=== PATIENT | female | born 1985 | race Caucasian/White ===

== ENCOUNTER 2024-05-12 10:49 | Emergency (ER) | payer OTHER, SELFPAY ==
[2024-05-12] VITALS (11 sets, daily range): BP systolic 94–114; BP diastolic 60–75; PULSE 89–103; RESP 20; TEMP 36.7–37; O2SAT 98–100; BMI 25.8
[2024-05-12 11:20] LABS: Add Manual Diff / Slide Review NO; Basophils Absolute Auto 100 /uL (0-100); Basophils Percent Auto 0.5 % (0-2); Eosinophils Absolute Auto 100 /uL (0-450); Eosinophils Percent Auto 0.7 % (2-4); Hematocrit 39.5 % (36-46); Hemoglobin 13.5 g/dL (12.0-16.0); Lymphocytes Absolute Auto 1500 /uL (1100-4500); Lymphocytes Percent Auto 8.8 % (25-40); Mean Corpuscular HGB Conc 34.1 % (30-36); Mean Corpuscular Volume 85.1 fL (80-100); Monocytes Absolute Auto 1200 /uL (0-900); Monocytes Percent Auto 7.2 % (3-14); Neutrophils Absolute Auto 14200 /uL (1500-7000); Neutrophils Percent Auto 82.8 % (50-75); Platelet Count 492 X10^3/uL (150-400); Red Blood Cell Count 4.65 X10^6/uL (4.0-5.2); Red Cell Distribution Width 12.2 % (11.6-14.8); White Blood Cell Count 17.1 X10^3/uL (4.5-11.0)
[2024-05-12 11:35] LABS: Alanine Aminotransferase 109 IU/L (<35); Albumin 4.1 g/dL (3.5-5.0); Albumin Globulin Ratio 1.2 (1.0-2.8); Alkaline Phosphatase 164 U/L (38-126); Aspartate Aminotransferase 80 IU/L (14-36); BUN Creatinine Ratio 13.5 (6-22); Bilirubin Total 0.7 mg/dL (0.2-1.3); Blood Urea Nitrogen 12 mg/dL (7-17); Calcium 9.4 mg/dL (8.4-10.2); Carbon Dioxide 25 mmol/L (22-32); Chloride 101 mmol/L (98-107); Estimated Glomerular Filt Rate > 60 mL/min (>60); Globulin 3.5 g/dL (1.7-4.1); Glucose 115 mg/dL (70-100); HEMOLYSIS < 15 (0-50); Lipase 68 U/L (23-300); Potassium 3.7 mmol/L (3.4-5.1); Sodium 136 mmol/L (137-145); Total Protein 7.6 g/dL (6.3-8.2)
--- NOTE | 2024-05-12 11:55 | ED_ITS ---
HPI - Abdominal Pain General Chief Complaint: Abdominal Pain Stated Complaint: abd pain, fever, diarrhea Time Seen by Provider: 05/12/24 11:11 Source: patient Mode of arrival: Ambulatory History of Present Illness HPI narrative: Patient here with . Complains of generalized abdominal pain does not radiate for the past 10-12 days. Had fever this past Saturday. Seen by primary care and prescribed Augmentin this week. Was scheduled for outpatient CT scan next week. No urinary complaints. No nausea or vomiting. Diarrhea has been nonbloody. Worse with eating. Denies any abdominal surgical history. Patient in no distress. No known sick contacts. No recent foreign travel. No known contaminated foods. Related Data Allergies Allergy/AdvReac Type Severity Reaction Status Date / Time No Known Drug Allergies Allergy Verified 05/12/24 11:15 Review of Systems Review of Systems Narrative: GENERAL: Negative chills, fatigue, malaise, positive fever, negative sweats. HEENT: Negative sinus pain, ear pain, sore throat RESPIRATORY: Negative dyspnea, cough CARDIOVASCULAR: Negative chest pain, palpitations GASTROINTESTINAL: Negative nausea, vomiting, positive diarrhea and abdominal pain : Negative dysuria, frequency, hematuria MUSCULOSKELETAL: Negative muscle or bony pain SKIN: Negative rash, skin lesions NEUROLOGIC: Negative weakness, numbness ROS Unobtainable: All systems reviewed & are unremarkable except as noted in HPI and below Patient History Social History Smoking Status: Never smoker Smoking Status: Never smoker Exam Narrative Exam Narrative: GENERAL: in no distress, not toxic not dyspneic HEAD: Normocephalic. EYES: Pupils equal round ENT: Mucous membranes moist. NECK: Trachea midline. CARDIOVASCULAR: Regular rate and rhythm RESPIRATORY: Clear to auscultation. Breath sounds equal bilaterally. No wheezes, rales, or rhonchi. GASTROINTESTINAL: Abdomen soft, non-tender abdomen is soft flat nontender no peritoneal signs bowel sounds are present no guarding or rebound. No CVA tenderness EXTREMITIES: No gross deformities. BACK: No flank tenderness. NEURO: AOx4. SKIN: Warm and dry PSYCH: Not anxious, is cooperative Initial Vital Signs Initial Vital Signs: Vital Signs Pulse Rate 99 H 05/12/24 11:01 Blood Pressure 114/69 05/12/24 11:01 Pulse Oximetry 99 05/12/24 11:01 Course Orders Ordered: Discontinued Medications Sodium Chloride (Normal Saline 0.9%) 1,000 mls @ 1,000 mls/hr IV BOLUS ONE Stop: 05/12/24 12:53 Last Infusion: 05/12/24 14:31 Dose: Infused Documented By: Admin: 05/12/24 13:06 Dose: 1,000 mls/hr Documented By: ROBBIN Ondansetron HCl (Ondansetron 4 Mg/2 Ml Inj) 4 mg IV NOW PRN PRN Reason: Nausea And Vomiting Ondansetron HCl (Ondansetron 4 Mg Odt) 4 mg PO NOW PRN PRN Reason: Nausea And Vomiting Vital Signs Vital signs: Vital Signs - 8 hr 05/12/24 11:01 05/12/24 11:01 05/12/24 11:07 Temperature 98.1 F Pulse Rate 99 H 103 H Respiratory Rate 20 Blood Pressure 114/69 114/69 Pulse Oximetry 99 100 Oxygen Delivery Method Room Air 05/12/24 11:30 05/12/24 12:10 05/12/24 12:11 Temperature Pulse Rate 92 H Respiratory Rate Blood Pressure 114/69 Pulse Oximetry 98 98 Oxygen Delivery Method 05/12/24 12:11 05/12/24 12:30 05/12/24 12:30 Temperature Pulse Rate 94 H 92 H Respiratory Rate Blood Pressure 109/65 Pulse Oximetry 99 100 Oxygen Delivery Method 05/12/24 12:59 05/12/24 12:59 05/12/24 13:00 Temperature Pulse Rate 97 H Respiratory Rate Blood Pressure 94/75 107/65 Pulse Oximetry 100 Oxygen Delivery Method 05/12/24 13:00 05/12/24 13:30 05/12/24 13:30 Temperature Pulse Rate 92 H 90 Respiratory Rate Blood Pressure 102/60 Pulse Oximetry 100 100 Oxygen Delivery Method 05/12/24 14:00 05/12/24 14:00 Temperature Pulse Rate 90 Respiratory Rate Blood Pressure 102/65 Pulse Oximetry 100 Oxygen Delivery Method MDM - Abdominal Pain Lab Data 05/12/24 11:12 05/12/24 11:12 Labs: Lab Results 05/12/24 05/12/24 05/12/24 Range/Units 11:12 12:02 12:50 WBC 17.1 H (4.5-11.0) X10^3/uL RBC 4.65 (4.0-5.2) X10^6/uL Hgb 13.5 (12.0-16.0) g/dL Hct 39.5 (36-46) % MCV 85.1 (80-100) fL MCH 29.0 (26-34) PG MCHC 34.1 (30-36) % RDW 12.2 (11.6-14.8) % Plt Count 492 H (150-400) X10^3/uL Neut % (Auto) 82.8 H (50-75) % Lymph % (Auto) 8.8 L (25-40) % [place] % (Auto) 7.2 (3-14) % Eos % (Auto) 0.7 L (2-4) % Baso % (Auto) 0.5 (0-2) % Neut # (Auto) 34303 H (3851-0974) /uL Lymph # (Auto) 1500 (9017-0410) /uL [place] # (Auto) 1200 H (0-900) /uL Eos # (Auto) 100 (0-450) /uL Baso # (Auto) 100 (0-100) /uL Sodium 136 L (137-145) mmol/L Potassium 3.7 (3.4-5.1) mmol/L Chloride 101 (98-107) mmol/L Carbon Dioxide 25 (22-32) mmol/L BUN 12 (7-17) mg/dL Creatinine 0.89 (0.52-1.04) mg/dL Estimated GFR > 60 (>60) mL/min BUN/Creatinine Ratio 13.5 (6-22) Glucose 115 H (70-100) mg/dL Calcium 9.4 (8.4-10.2) mg/dL Total Bilirubin 0.7 (0.2-1.3) mg/dL AST 80 H (14-36) IU/L ALT 109 H (<35) IU/L Alkaline Phosphatase 164 H (38-126) U/L Total Protein 7.6 (6.3-8.2) g/dL Albumin 4.1 (3.5-5.0) g/dL Globulin 3.5 (1.7-4.1) g/dL Albumin/Globulin Ratio 1.2 (1.0-2.8) Lipase 68 (23-300) U/L Serum , Qual Negative (Negative) Urine RBC (0-5/HPF) Urine WBC (0-5/HPF) Ur Squamous Epith Cells (0-5/HPF) Urine Bacteria (None) Ur Culture Indicated? Vol Urine Centrifuged Stl C. cayetanensis PCR Not detected (Not Detect) Stool Rotavirus (PCR) Not detected (Not Detect) Stool Adenovirus (PCR) Not detected (Not Detect) Stool Astrovirus (PCR) Not detected (Not Detect) Stool Cryptosporidium PCR Not detected (Not Detect) Stl E.coli Shiga Tox PCR Not detected (Not Detect) St Sh/Enteroin Ecoli PCR Not detected (Not Detect) Stl Enterotoxigenic E PCR Detected (Not Detect) Stool EPEC (PCR) Not detected (Not Detect) Stl E. histolytica PCR Not detected (Not Detect) Stool Giardia Lamblia PCR Not detected (Not Detect) Stool Sapovirus (PCR) Not detected (Not Detect) Stl P. shigelloides PCR Not detected (Not Detect) St Y.enterocolitica PCR Not detected (Not Detect) Stool Vibrio (PCR) Not detected (Not Detect) Stl Vibrio cholerae PCR Not detected (Not Detect) Stl Enteroaggr Ecoli PCR Not detected (Not Detect) Stl Norovirus GI/GII PCR Not detected (Not Detect) Campylobacter (PCR) Not detected (Not Detect) C. difficile Tox (PCR) Not detected (Not Detect) SARS-CoV-2 (PCR) Negative (Negative) Influenza A (RT-PCR) Flu a negative (NEGATIVE) Influenza B (RT-PCR) Flu b negative (NEGATIVE) RSV (PCR) Negative (Negative) Salmonella (PCR) Not detected (Not Detect) 05/12/24 Range/Units 12:55 WBC (4.5-11.0) X10^3/uL RBC (4.0-5.2) X10^6/uL Hgb (12.0-16.0) g/dL Hct (36-46) % MCV (80-100) fL MCH (26-34) PG MCHC (30-36) % RDW (11.6-14.8) % Plt Count (150-400) X10^3/uL Neut % (Auto) (50-75) % Lymph % (Auto) (25-40) % [place] % (Auto) (3-14) % Eos % (Auto) (2-4) % Baso % (Auto) (0-2) % Neut # (Auto) (5688-7267) /uL Lymph # (Auto) (9094-0550) /uL [place] # (Auto) (0-900) /uL Eos # (Auto) (0-450) /uL Baso # (Auto) (0-100) /uL Sodium (137-145) mmol/L Potassium (3.4-5.1) mmol/L Chloride (98-107) mmol/L Carbon Dioxide (22-32) mmol/L BUN (7-17) mg/dL Creatinine (0.52-1.04) mg/dL Estimated GFR (>60) mL/min BUN/Creatinine Ratio (6-22) Glucose (70-100) mg/dL Calcium (8.4-10.2) mg/dL Total Bilirubin (0.2-1.3) mg/dL AST (14-36) IU/L ALT (<35) IU/L Alkaline Phosphatase (38-126) U/L Total Protein (6.3-8.2) g/dL Albumin (3.5-5.0) g/dL Globulin (1.7-4.1) g/dL Albumin/Globulin Ratio (1.0-2.8) Lipase (23-300) U/L Serum , Qual (Negative) Urine RBC None seen (0-5/HPF) Urine WBC 1-5/hpf (0-5/HPF) Ur Squamous Epith Cells 1-5 /hpf (0-5/HPF) Urine Bacteria Few (2-10) H (None) Ur Culture Indicated? Cult not indicated Vol Urine Centrifuged 10ml (spun) Stl C. cayetanensis PCR (Not Detect) Stool Rotavirus (PCR) (Not Detect) Stool Adenovirus (PCR) (Not Detect) Stool Astrovirus (PCR) (Not Detect) Stool Cryptosporidium PCR (Not Detect) Stl E.coli Shiga Tox PCR (Not Detect) St Sh/Enteroin Ecoli PCR (Not Detect) Stl Enterotoxigenic E PCR (Not Detect) Stool EPEC (PCR) (Not Detect) Stl E. histolytica PCR (Not Detect) Stool Giardia Lamblia PCR (Not Detect) Stool Sapovirus (PCR) (Not Detect) Stl P. shigelloides PCR (Not Detect) St Y.enterocolitica PCR (Not Detect) Stool Vibrio (PCR) (Not Detect) Stl Vibrio cholerae PCR (Not Detect) Stl Enteroaggr Ecoli PCR (Not Detect) Stl Norovirus GI/GII PCR (Not Detect) Campylobacter (PCR) (Not Detect) C. difficile Tox (PCR) (Not Detect) SARS-CoV-2 (PCR) (Negative) Influenza A (RT-PCR) (NEGATIVE) Influenza B (RT-PCR) (NEGATIVE) RSV (PCR) (Negative) Salmonella (PCR) (Not Detect) Point of care testing: Point of Care Testing Test Results Negative Urine Dip Bedside Urine Glucose Negative Bedside Urine Bilirubin - Negative Bedside Urine Ketone - Negative Urine Specific [place] 1.005 Bedside Urine Occult Blood +/- Bedside Urine pH 5.5 Bedside Urine Protein - Negative Bedside Urine Urobilinogen - Negative Bedside Urine Nitrite - Negative Bedside Urine Leukocytes +/- [address] scan - abdomen/pelvis: Radiologist's Impression: [address] [address] [address] Scan Report Signed Patient: Mary Najera MR#: [id number] : 1985 Acct:[id number] Age/Sex: 39 / F Date of Service: 05/12/24 Loc: ED Accession Number: [id number] Procedure: CT abdomen pelvis w con Ordering Provider: Jonathon Servin MD PROCEDURE: CT ABDOMEN PELVIS W CON INDICATIONS: IV contrast only/Fever/abdominal pain/diarrhea TECHNIQUE: After the administration of intravenous contrast, axial sections acquired from the lung bases to the pubic symphysis. Coronal and sagittal reformats were performed. For radiation dose reduction, the following was used: automated exposure control, adjustment of mA and/or kV according to patient size. COMPARISON: None. FINDINGS: Image quality: Diagnostic. Lower Chest: Lung bases are clear. Right breast implant noted. Right upper lobe pleural thickening/scarring likely related to prior radiation therapy. Heart size is normal. ABDOMEN: Liver: No solid mass. Gallbladder: Gallbladder is unremarkable without CT evidence for acute inflammation. Biliary ducts: No biliary dilation. Pancreas: Homogeneous enhancement without focal lesions or pancreatic ductal dilatation. No peripancreatic inflammation or organized fluid collections. Spleen: Size is within normal limits. Adrenal Glands: No adrenal nodules. Kidneys and Ureters: No hydronephrosis. No solid mass. No complex renal cystic lesion which requires follow up. Stomach and Bowel: There is moderate circumferential wall thickening and associated inflammatory stranding involving the colon extending from the mid transverse colon through the rectum. There also extensive fluid-filled loops of nondilated small bowel without significant wall thickening. No evidence for bowel obstruction. Peritoneum: No abnormal intraperitoneal fluid. No free air. Ventral Wall: No significant ventral hernia. Abdominal Nodes: No retroperitoneal or mesenteric adenopathy by size criteria. Vessels: Aorta and inferior vena cava are normal in size. PELVIS: Pelvic Organs: Unremarkable. Bladder: No bladder wall thickening, accounting for underdistention. Pelvic Nodes: No enlarged lymph nodes. Miscellaneous: No inguinal hernias are seen. Bones: No aggressive osseous abnormality. Visualized osseous structures appear intact without acute fracture or focal destructive lesion. No acute compression fractures of the imaged spine. IMPRESSION: Findings consistent with enterocolitis either infectious or inflammatory in etiology. No evidence for bowel obstruction. Other chronic findings as above. Dictated by: Gómez Rinaldi M.D. on 05/12/2024 at 13:45 Approved by: Gómez Rinaldi M.D. on 05/12/2024 at 13:51 [facility] Narrative Medical decision making narrative: Patient here with . Complains of generalized abdominal pain does not radiate for the past 10-12 days. Had fever this past Saturday. Seen by primary care and prescribed Augmentin this week. Was scheduled for outpatient CT scan next week. No urinary complaints. No nausea or vomiting. Diarrhea has been nonbloody. Worse with eating. Denies any abdominal surgical history. Patient in no distress. No known sick contacts. No recent foreign travel. No known contaminated foods. After history and exam CBC CMP CT abdomen pelvis normal saline GI panel respiratory panel lipase [facility] Medical records reviewed: No recent visit for this complaint Differential considered: Includes but not limited to noro virus viral gastroenteritis colitis UTI appendicitis cholecystitis pancreatitis Lab Test results independently reviewed as above. Pertinent findings: WBC 17.1 sodium 136 AST 80 ALT 109 lipase 68, GI panel positive entire toxigenic E coli Imaging studies independently reviewed: CT abdomen pelvis consistent with enterocolitis Consultations: 2:45 p.m.. Spoke with Infectious Disease, Dr. Mcfadden, with [facility], reviewed results with him. No antibiotics at this time. No admission indicated. Is supportive care. Treatments: IV fluids Re-evaluations: 2:55 p.m.. Updated patient and results. Reviewed with him my discussion with infectious disease. They do understand do not take the Augmentin. That was prescribed yesterday by primary care. Supportive care is the management. Hydration instructions provided. They desire discharge home. Discussion: Appropriate for discharge home exam is reassuring. Return precautions reviewed with patient. Infectious Disease was consulted. Patient desires discharge home. Diagnosis: Infectious diarrhea Discharge Plan Departure Patient Disposition: Home Clinical Impression: Acute infectious diarrhea Instructions: DI for Bacterial Gastroenteritis -- Adult Activity Restrictions/Additional Instructions: Your laboratory studies did show positive infection with E coli. Infectious Disease was consulted and no antibiotics are indicated at this time. Keep herself well hydrated. No prescriptions are indicated this time. See family doctor within a week for re-evaluation. Return if worse if any questions or concerns. Work note has been provided for you. Stand Alone Forms: Patient Portal/API/Survey, Work Release Note
[2024-05-12 12:03] LABS: Pregnancy Test Serum,Qual Negative (Negative)
[2024-05-12] MEDS: SODIUM CHLORIDE 0.9% 1,000 ML 1000 ML IV (13:06)
[2024-05-12 13:16] LABS: Urine Volume 10mL (spun)
[2024-05-12 14:01] LABS: Bacteria Urine Few (2-10); Culture Indicated Urine Cult Not Indicated; RBC Urine None Seen (0-5/HPF); Squamous Epithelial Cell Urine 1-5 /HPF (0-5/HPF); WBC Urine 1-5/HPF (0-5/HPF)
[2024-05-12 14:17] LABS: Adenovirus F 40/41 Not Detected (Not Detect); Astrovirus Not Detected (Not Detect); Campylobacter Not Detected (Not Detect); Clostridium difficile toxin AB Not Detected (Not Detect); Cryptosporidium Not Detected (Not Detect); Cyclospora cayetanensis Not Detected (Not Detect); Entamoeba histolytica Not Detected (Not Detect); Enteroaggregative E.coli Not Detected (Not Detect); Enteropathogenic E.coli Not Detected (Not Detect); Enterotoxigenic E.coli It/st Detected (Not Detect); Giardia lamblia Not Detected (Not Detect); Norovirus GI/GII Not Detected (Not Detect); Plesiomonsa shigelloides Not Detected (Not Detect); Rotavirus A Not Detected (Not Detect); Salmonella Not Detected (Not Detect); Sapovirus Not Detected (Not Detect); Shiga-like toxin-prod E.coli Not Detected (Not Detect); Shigella/Enteroinvasive E.coli Not Detected (Not Detect); Vibrio Not Detected (Not Detect); Vibrio cholerae Not Detected (Not Detect); Yersinia enterocolitica Not Detected (Not Detect)
[2024-05-12 14:57] LABS: Influenza A - CEPHEID Flu A NEGATIVE (NEGATIVE); Influenza B - CEPHEID Flu B NEGATIVE (NEGATIVE); Respiratory Syncytial Virus Negative (Negative)
[2024-05-12 15:05] LABS: COVID-19 CEPHEID 4-PLEX PCR Negative (Negative)
== END 2024-05-12 15:09 | disposition home or self-care (01) ==
PROVIDERS: Emergency Provider Emergency Medicine
DX: A09 Infectious gastroenteritis and colitis, unspecified (principal); B96.20 Unspecified Escherichia coli [E. coli] as the cause of diseases classified elsewhere
CPT/HCPCS: 0241U; 36415; 74177; 80053; 81003; 81015; 81025; 83690; 84703; 85025; 87507; 96360; 99284; Q9967

== ENCOUNTER 2024-05-18 10:57 | Emergency (ER) | payer OTHER, SELFPAY ==
[2024-05-18] VITALS (12 sets, daily range): BP systolic 100–109; BP diastolic 67–74; PULSE 90–119; RESP 15–18; TEMP 37.1; O2SAT 96–100; BMI 26.5
[2024-05-18 12:02] LABS: Add Manual Diff / Slide Review NO; Basophils Absolute Auto 100 /uL (0-100); Basophils Percent Auto 0.6 % (0-2); Eosinophils Absolute Auto 200 /uL (0-450); Eosinophils Percent Auto 1.2 % (2-4); Hematocrit 37.6 % (36-46); Hemoglobin 12.6 g/dL (12.0-16.0); Lymphocytes Absolute Auto 1100 /uL (1100-4500); Lymphocytes Percent Auto 8.4 % (25-40); Mean Corpuscular HGB Conc 33.5 % (30-36); Mean Corpuscular Hemoglobin 28.3 PG (26-34); Mean Corpuscular Volume 84.6 fL (80-100); Monocytes Absolute Auto 1700 /uL (0-900); Monocytes Percent Auto 12.8 % (3-14); Neutrophils Absolute Auto 10500 /uL (1500-7000); Platelet Count 501 X10^3/uL (150-400); Red Blood Cell Count 4.44 X10^6/uL (4.0-5.2); Red Cell Distribution Width 12.3 % (11.6-14.8); White Blood Cell Count 13.6 X10^3/uL (4.5-11.0)
[2024-05-18] MEDS: SODIUM CHLORIDE 0.9% 1,000 ML 1000 ML IV ×2 (12:04→13:43)
[2024-05-18 12:11] LABS: Alanine Aminotransferase 70 IU/L (<35); Albumin 3.5 g/dL (3.5-5.0); Alkaline Phosphatase 151 U/L (38-126); Aspartate Aminotransferase 34 IU/L (14-36); BUN Creatinine Ratio 11.7 (6-22); Bilirubin Total 0.6 mg/dL (0.2-1.3); Blood Urea Nitrogen 9 mg/dL (7-17); Calcium 8.6 mg/dL (8.4-10.2); Carbon Dioxide 24 mmol/L (22-32); Chloride 102 mmol/L (98-107); Estimated Glomerular Filt Rate > 60 mL/min (>60); Globulin 3.4 g/dL (1.7-4.1); Glucose 117 mg/dL (70-100); HEMOLYSIS < 15 (0-50); Lactate (Lactic Acid) 1.1 mmol/L (0.7-2.1); Potassium 3.5 mmol/L (3.4-5.1); Sodium 135 mmol/L (137-145); Total Protein 6.9 g/dL (6.3-8.2)
--- NOTE | 2024-05-18 12:25 | ED.NAVMDI ---
HPI - Nausea/Vomiting/Diarrhea General Chief complaint: Nausea/Vomiting/Diarrhea Stated complaint: Not getting better from last ER visit Time Seen by Provider: 05/18/24 11:55 Source: patient Mode of arrival: Ambulatory History of Present Illness HPI Narrative: Patient is a 39-year-old female recently diagnosed with E coli entero toxigenic diarrhea, on 05/12/2024. She reports she would has multiple episodes of loose stool 10-12 daily, more so when she eats. She started having fevers 102-103, 4 nights ago. She says she gets some during the day but more at night. She was able to pee urinate today she was very dizzy lightheaded in the shower but she did not out. She has minimal cramping no real nausea she took 3 days of azithromycin fevers continue along with a stool. She reports that she has had diarrhea ongoing since May 04 does not seem to be getting any better. She had a CT May 12 which did show entero colitis. Related Data Allergies Allergy/AdvReac Type Severity Reaction Status Date / Time No Known Drug Allergies Allergy Verified 05/12/24 11:15 Patient History Social History Smoking Status: Never smoker Smoking Status: Never smoker Exam Initial Vital Signs Initial Vital Signs: Vital Signs Temperature 98.7 F 05/18/24 11:16 Pulse Rate 119 H 05/18/24 11:16 Respiratory Rate 18 05/18/24 11:16 Blood Pressure 109/74 05/18/24 11:16 Pulse Oximetry 96 05/18/24 11:16 Oxygen Delivery Method Room Air 05/18/24 11:16 GENERAL: Slightly pale 39-year-old female HEENT: Head atraumatic,EOMI, pupils reactive, face symmetric, moist mucous membranes CARDIOVASCULAR: Regular rate and rhythm without murmurs, rubs or gallops. RESPIRATORY: Breath sounds equal bilaterally, no wheezes rales or rhonchi. ABDOMEN: Soft, nontender. Normoactive bowel sounds all 4 quadrants. No guarding or rebound. EXTREMITIES: Normal range of motion, no clubbing or edema. Neurovascularly intact NEUROLOGICAL: Alert and oriented x4.Normal gait and speech. Cranial nerves II through XII grossly intact. SKIN: Warm, dry, no laceration, no petechiae, no rashes or lesions. Course Orders Ordered: ED Orders 05/18/24 11:55 CBC Auto Diff [Complete Blood Count AUTO DIFF] Stat CMP [Comprehensive Metabolic Panel] Stat Lactate (Lactic Acid) Stat 05/18/24 12:30 GI Panel (Film Array) Stat 05/18/24 14:30 Blood Culture Stat Discontinued Medications Sodium Chloride (Normal Saline 0.9%) 1,000 mls @ 1,000 mls/hr IV BOLUS ONE Stop: 05/18/24 12:55 Last Infusion: 05/18/24 13:42 Dose: Infused Documented By: Admin: 05/18/24 12:04 Dose: 1,000 mls/hr Documented By: Sodium Chloride (Normal Saline 0.9%) 1,000 mls @ 1,000 mls/hr IV BOLUS ONE Stop: 05/18/24 14:41 Last Infusion: 05/18/24 15:09 Dose: Infused Documented By: Admin: 05/18/24 13:43 Dose: 1,000 mls/hr Documented By: Vital Signs Vital signs: Vital Signs - 8 hr 05/18/24 11:16 05/18/24 11:31 05/18/24 11:31 Temperature 98.7 F Pulse Rate 119 H 107 H Respiratory Rate 18 Blood Pressure 109/74 103/68 Pulse Oximetry 96 98 Oxygen Delivery Method Room Air 05/18/24 12:00 05/18/24 12:00 05/18/24 12:30 Temperature Pulse Rate 97 H 90 Respiratory Rate Blood Pressure 100/68 Pulse Oximetry 97 Oxygen Delivery Method 05/18/24 13:00 05/18/24 13:30 05/18/24 13:40 Temperature Pulse Rate 96 H 99 H 99 H Respiratory Rate Blood Pressure Pulse Oximetry 100 100 99 Oxygen Delivery Method 05/18/24 13:40 05/18/24 14:00 05/18/24 14:00 Temperature Pulse Rate 98 H 97 H Respiratory Rate 15 Blood Pressure 106/67 102/67 Pulse Oximetry 98 100 Oxygen Delivery Method Room Air 05/18/24 14:30 05/18/24 15:00 05/18/24 15:30 Temperature Pulse Rate 94 H 93 H 93 H Respiratory Rate Blood Pressure Pulse Oximetry 100 100 100 Oxygen Delivery Method 05/18/24 15:46 Temperature 98.8 F Pulse Rate Respiratory Rate Blood Pressure Pulse Oximetry Oxygen Delivery Method MDM - Nausea/Vomiting/Diarrhea Lab Data 05/18/24 11:55 05/18/24 11:55 Labs: Lab Results 05/18/24 05/18/24 Range/Units 11:55 12:30 WBC 13.6 H (4.5-11.0) X10^3/uL RBC 4.44 (4.0-5.2) X10^6/uL Hgb 12.6 (12.0-16.0) g/dL Hct 37.6 (36-46) % MCV 84.6 (80-100) fL MCH 28.3 (26-34) PG MCHC 33.5 (30-36) % RDW 12.3 (11.6-14.8) % Plt Count 501 H (150-400) X10^3/uL Neut % (Auto) 77.0 H (50-75) % Lymph % (Auto) 8.4 L (25-40) % [place] % (Auto) 12.8 (3-14) % Eos % (Auto) 1.2 L (2-4) % Baso % (Auto) 0.6 (0-2) % Neut # (Auto) 93146 H (5320-3040) /uL Lymph # (Auto) 1100 (1840-6269) /uL [place] # (Auto) 1700 H (0-900) /uL Eos # (Auto) 200 (0-450) /uL Baso # (Auto) 100 (0-100) /uL Sodium 135 L (137-145) mmol/L Potassium 3.5 (3.4-5.1) mmol/L Chloride 102 (98-107) mmol/L Carbon Dioxide 24 (22-32) mmol/L BUN 9 (7-17) mg/dL Creatinine 0.77 (0.52-1.04) mg/dL Estimated GFR > 60 (>60) mL/min BUN/Creatinine Ratio 11.7 (6-22) Glucose 117 H (70-100) mg/dL Lactate 1.1 (0.7-2.1) mmol/L Calcium 8.6 (8.4-10.2) mg/dL Total Bilirubin 0.6 (0.2-1.3) mg/dL AST 34 (14-36) IU/L ALT 70 H (<35) IU/L Alkaline Phosphatase 151 H (38-126) U/L Total Protein 6.9 (6.3-8.2) g/dL Albumin 3.5 (3.5-5.0) g/dL Globulin 3.4 (1.7-4.1) g/dL Albumin/Globulin Ratio 1.0 (1.0-2.8) Stl C. cayetanensis PCR Not detected (Not Detect) Stool Rotavirus (PCR) Not detected (Not Detect) Stool Adenovirus (PCR) Not detected (Not Detect) Stool Astrovirus (PCR) Not detected (Not Detect) Stool Cryptosporidium PCR Not detected (Not Detect) Stl E.coli Shiga Tox PCR Not detected (Not Detect) St Sh/Enteroin Ecoli PCR Not detected (Not Detect) Stl Enterotoxigenic E PCR Not detected (Not Detect) Stool EPEC (PCR) Not detected (Not Detect) Stl E. histolytica PCR Not detected (Not Detect) Stool Giardia Lamblia PCR Not detected (Not Detect) Stool Sapovirus (PCR) Not detected (Not Detect) Stl P. shigelloides PCR Not detected (Not Detect) St Y.enterocolitica PCR Not detected (Not Detect) Stool Vibrio (PCR) Not detected (Not Detect) Stl Vibrio cholerae PCR Not detected (Not Detect) Stl Enteroaggr Ecoli PCR Not detected (Not Detect) Stl Norovirus GI/GII PCR Not detected (Not Detect) Campylobacter (PCR) Not detected (Not Detect) C. difficile Tox (PCR) Not detected (Not Detect) Salmonella (PCR) Not detected (Not Detect) MDM Narrative Medical decision making narrative: Patient 39-year-old female diagnosed with entero toxigenic E coli 1 week ago. She was treated with azithromycin for 3 days but continues to have fever diarrhea. She was tachycardic here with a heart rate of 118. Heart rate has improved with IV fluids. She was also found to have leukocytosis of 13 which is actually improved from prior it was 17. She does not show any evidence of electrolyte abnormality or ERLIN she was a sodium of 135 potassium 3.5 creatinine 0.7 Awaiting for GI panel again today GI panel negative. She has had 2 L of fluid overall feeling much better. At this time I do not see need for any further antibiotics. Recommended probiotics supportive care. Discharge Plan Departure Patient Disposition: Home Clinical Impression: Acute infectious diarrhea Instructions: DI for Bacterial Gastroenteritis -- Adult Activity Restrictions/Additional Instructions: *You have been diagnosed with gastroenteritis *What to do: At this time your blood work looks better today than it has. Your stool panel is negative so I think that antibiotic worked. Recommend a probiotic and a low-fiber diet. *Continue to take medications as directed Tylenol Motrin as needed for fever or pain *Follow up with your primary care provider in 2-3 days or call [phone] *Return to ER if you should have persistent fevers diarrhea or any new, worsening or concerning symptoms Stand Alone Forms: Patient Portal/API/Survey
--- NOTE | 2024-05-18 12:52 | PC.NURSE ---
Pt up to BR, Having gelatanous BM that appears streaked with blood. Sample sent to lab.
[2024-05-18 15:04] LABS: Adenovirus F 40/41 Not Detected (Not Detect); Astrovirus Not Detected (Not Detect); Campylobacter Not Detected (Not Detect); Clostridium difficile toxin AB Not Detected (Not Detect); Cryptosporidium Not Detected (Not Detect); Cyclospora cayetanensis Not Detected (Not Detect); Entamoeba histolytica Not Detected (Not Detect); Enteroaggregative E.coli Not Detected (Not Detect); Enteropathogenic E.coli Not Detected (Not Detect); Enterotoxigenic E.coli It/st Not Detected (Not Detect); Giardia lamblia Not Detected (Not Detect); Norovirus GI/GII Not Detected (Not Detect); Plesiomonsa shigelloides Not Detected (Not Detect); Rotavirus A Not Detected (Not Detect); Salmonella Not Detected (Not Detect); Sapovirus Not Detected (Not Detect); Shiga-like toxin-prod E.coli Not Detected (Not Detect); Shigella/Enteroinvasive E.coli Not Detected (Not Detect); Vibrio Not Detected (Not Detect); Vibrio cholerae Not Detected (Not Detect); Yersinia enterocolitica Not Detected (Not Detect)
== END 2024-05-18 15:47 | disposition home or self-care (01) ==
PROVIDERS: Emergency Provider Emergency Medicine
DX: A04.1 Enterotoxigenic Escherichia coli infection (principal); R42 Dizziness and giddiness
CPT/HCPCS: 36415; 80053; 83605; 85025; 87040; 87507; 96360; 96361; 99284